=== PATIENT | male | born 1960 | race African-American/Black ===

== ENCOUNTER 2020-09-02 02:04 | Inpatient (IN) | payer MEDICAID ==
[~2020-09-02] VITALS: Ht 175.3 cm; Wt 95.3 kg
[2020-09-02] MEDS ORDERED: FAMOTIDINE 20MG/2ML VIAL IV STA (02:35)
[2020-09-02] MEDS ORDERED: ONDANSETRON HCL 4MG/2ML INJ IV STA (02:35)
[2020-09-02] MEDS ORDERED: MORPHINE SULFATE 4 MG/ML CPJ (NOT FOR IM USE) IV STA (02:35)
[2020-09-02] MEDS ORDERED: SODIUM CHLORIDE 0.9% 1,000 ML IV ONE (02:45)
[2020-09-02 03:03] LABS: HEMATOCRIT. 44.8 % (42.0-52.0); HEMOGLOBIN. 15.4 g/dL (14.0-18.0); MEAN CORPUSCULAR HEMOGLOBIN 31.2 pg (28.0-32.0); MEAN CORPUSCULAR VOLUME 90.8 fL (80.0-94.0); MEAN PLATELET VOLUME 8.6 fl (7.4-10.4); PLATELET 256 x1000/uL (130-400); RED BLOOD CELL COUNT 4.94 mill/uL (4.7-6.1); RED CELL DISTRIBUTION WIDTH 13.1 % (11.6-14.6)
[2020-09-02 03:06] LABS: CHLORIDE 99 mEq/L (98-107)
[2020-09-02] MEDS ORDERED: MORPHINE SULFATE 4 MG/ML CPJ (NOT FOR IM USE) IV ONE (05:15)
[2020-09-02 07:20] LABS: PLATELET ESTIMATE NORMAL
[2020-09-02 08:30] VITALS: BP 129/68
[2020-09-02] MEDS ORDERED: MORPHINE SULFATE 2 MG/ML CPJ (NOT FOR IM USE) IV PRN (10:00)
[2020-09-02] MEDS ORDERED: ACETAMINOPHEN 325MG TABLET PO PRN (10:00)
[2020-09-02] MEDS ORDERED: MAGNESIUM/ALUMINUM HYDROXIDE/SIMETHICONE 30ML UDC PO PRN (10:00)
[2020-09-02] MEDS ORDERED: DOCUSATE SODIUM 100MG CAPSULE PO PRN (10:00)
[2020-09-02] MEDS ORDERED: CLONIDINE 0.1MG TABLET PO PRN (10:00)
[2020-09-02] MEDS: ENOXAPARIN 30MG/0.3ML SYR SUBCUT SCH ×2 (11:41→23:12)
[2020-09-02 12:00] VITALS: BP 133/82
[2020-09-02] MEDS: ONDANSETRON HCL 4MG/2ML INJ IV PRN (12:13)
[2020-09-02] MEDS: METOCLOPRAMIDE HCL 10MG/2ML VIAL IV SCH ×3 (15:04→23:11)
[2020-09-02] MEDS: SUCRALFATE 1 G/10 ML UDC PO SCH ×3 (15:04→23:11)
[2020-09-02 18:20] VITALS: BP 141/83
[2020-09-02 20:00] VITALS: BP 110/81
[2020-09-03] VITALS: BP 134/64
[2020-09-03 01:59] LABS: CLARITY URINE CLEAR (CLEAR); COLOR URINE DARK YELLOW (YELLOW); KETONES URINE 1+ (NEGATIVE); LEUKOCYTE ESTERASE URINE TRACE (NEGATIVE); NITRITE URINE NEGATIVE (NEGATIVE); OCCULT BLOOD URINE NEGATIVE (NEGATIVE); PH URINE 7.5 (4.5-8.0); PROTEIN URINE 2+ (NEGATIVE); SPECIFIC GRAVITY URINE 1.038 (1.005-1.030)
[2020-09-03 04:00] VITALS: BP 134/73
[2020-09-03] MEDS: ONDANSETRON HCL 4MG/2ML INJ IV PRN (04:11)
[2020-09-03] MEDS: SUCRALFATE 1 G/10 ML UDC PO SCH ×4 (05:20→23:31)
[2020-09-03] MEDS: METOCLOPRAMIDE HCL 10MG/2ML VIAL IV SCH ×4 (05:20→23:31)
[2020-09-03 07:17] LABS: BASOPHILS % 0.3 % (0.0-2.0); HEMATOCRIT. 45.2 % (42.0-52.0); HEMOGLOBIN. 14.9 g/dL (14.0-18.0); MEAN CORPUSCULAR HEMOGLOBIN 30.7 pg (28.0-32.0); MEAN CORPUSCULAR VOLUME 92.9 fL (80.0-94.0); MONOCYTES % 12.1 % (2.0-8.0); NEUTROPHILS % 74.6 % (40.0-76.0); PLATELET 252 x1000/uL (130-400); RED BLOOD CELL COUNT 4.87 mill/uL (4.7-6.1); RED CELL DISTRIBUTION WIDTH 13.6 % (11.6-14.6)
[2020-09-03 07:29] LABS: CHLORIDE 99 mEq/L (98-107)
[2020-09-03 07:45] LABS: PHOSPHORUS 3.3 mg/dL (2.5-4.9)
[2020-09-03 08:00] VITALS: BP 124/63
[2020-09-03] MEDS: PANTOPRAZOLE SODIUM 40 MG/VIAL IV SCH (08:49)
[2020-09-03 12:00] VITALS: BP 124/79
[2020-09-03] MEDS: ENOXAPARIN 30MG/0.3ML SYR SUBCUT SCH ×2 (14:21→23:31)
[2020-09-03 16:00] VITALS: BP 110/60
[2020-09-03] MEDS ORDERED: POTASSIUM CHLORIDE 20MEQ TABLET SR PO NR (16:45)
[2020-09-03 20:00] VITALS: BP 110/66
[2020-09-04] VITALS: BP 124/55
[2020-09-04 04:00] VITALS: BP 121/72
[2020-09-04] MEDS: SUCRALFATE 1 G/10 ML UDC PO SCH ×2 (05:15→12:48)
[2020-09-04] MEDS: METOCLOPRAMIDE HCL 10MG/2ML VIAL IV SCH ×2 (05:15→12:48)
[2020-09-04 07:13] LABS: BASOPHILS % 0.6 % (0.0-2.0); EOSINOPHILS % 0.6 % (0.0-5.0); HEMATOCRIT. 45.5 % (42.0-52.0); HEMOGLOBIN. 15.6 g/dL (14.0-18.0); LYMPHOCYTES % 27.9 % (20.0-50.0); MEAN CORPUSCULAR HEMOGLOBIN 31.8 pg (28.0-32.0); MEAN CORPUSCULAR VOLUME 92.8 fL (80.0-94.0); MEAN PLATELET VOLUME 9.1 fl (7.4-10.4); MONOCYTES % 13.7 % (2.0-8.0); NEUTROPHILS % 57.2 % (40.0-76.0); PLATELET 244 x1000/uL (130-400)
[2020-09-04 07:24] LABS: CHLORIDE 99 mEq/L (98-107)
[2020-09-04 08:00] VITALS: BP 146/69
[2020-09-04] MEDS: PANTOPRAZOLE SODIUM 40 MG/VIAL IV SCH (08:41)
[2020-09-04] MEDS ORDERED: POTASSIUM CHLORIDE 20MEQ TABLET SR PO NR (11:30)
[2020-09-04 12:00] VITALS: BP 132/85
[2020-09-04] MEDS: ENOXAPARIN 30MG/0.3ML SYR SUBCUT SCH (12:49)
[2020-09-04 13:24] VITALS: BP 132/85
== END 2020-09-04 14:10 | disposition home or self-care (01) | DRG 241 ==
LOC: ER 02:04 → 8WST 05:15 → ENRESERV 07:02
PROVIDERS: ADMIT Internal Medicine; ATTEND Internal Medicine
DX: K29.70 Gastritis, unspecified, without bleeding (principal); E87.2 Acidosis; R19.09 Other intra-abdominal and pelvic swelling, mass and lump; D72.829 Elevated white blood cell count, unspecified; K44.9 Diaphragmatic hernia without obstruction or gangrene; E87.6 Hypokalemia; J45.909 Unspecified asthma, uncomplicated; Z88.5 Allergy status to narcotic agent; Z98.890 Other specified postprocedural states; E66.3 Overweight; Z68.31 Body mass index [BMI] 31.0-31.9, adult
CPT/HCPCS: 36415; 71045; 74176; 80048; 80053; 80076; 81003; 82378; 83605; 83735; 84100; 85025; 93005; 93970; 97162; 99291; C9113; J1650; J2270; J2405; J2765; J3490; J7030